=== PATIENT | male | born 1955 | race Caucasian/White ===

== ENCOUNTER 2022-04-02 06:37 | Day surgery (SDC) | payer BC, MEDICAID, MEDICARE ==
[2022-04-02] MEDS ORDERED: Dextrose 5%-Lactated Ringers 1,000 ML IV SCH (07:15)
[2022-04-02] MEDS ORDERED: Propofol 200 MG/20 ML SDV ONE ×2 (07:52→09:54)
[2022-04-02] MEDS ORDERED: fentaNYL 50 MCG/ML SDV ONE (07:52)
[2022-04-02] MEDS ORDERED: Midazolam 1 MG/ML 2 ML SDV ONE (07:56)
[2022-04-02 10:57] VITALS: BP 128/76; PULSE 62
== END 2022-04-02 11:15 | disposition home or self-care (01) ==
LOC: JP.SDS 06:37
PROVIDERS: ATTEND Surgery
DX: D12.5 Benign neoplasm of sigmoid colon (principal); K57.30 Diverticulosis of large intestine without perforation or abscess without bleeding; K64.9 Unspecified hemorrhoids; Z98.890 Other specified postprocedural states
CPT/HCPCS: J2250; J2704; J3010; J7121